=== PATIENT | female | born 1995 | race Caucasian/White ===

== ENCOUNTER 2018-03-25 09:37 | Emergency (ER) | payer OTHER ==
[2018-03-25] MEDS: predniSONE 20 MG TAB PO (10:33)
[2018-03-25] MEDS: DOXYCYCLINE 100 MG TAB PO (10:33)
[2018-03-25] MEDS: hydrOXYzine HCL 25 MG TAB PO (10:33)
== END 2018-03-25 10:38 | disposition home or self-care (01) ==
LOC: FTE 09:37
DX: L73.9 Follicular disorder, unspecified (principal)
CPT/HCPCS: 99284; J7512

== ENCOUNTER 2018-12-20 12:57 | Emergency (ER) | payer OTHER ==
[2018-12-20 14:06] LABS: URINE BLOOD (Dip) POC Trace-intact (NEGATIVE); URINE GLUCOSE (Dip) POC Negative (NEGATIVE); URINE KETONES (Dip) POC Negative (NEGATIVE); URINE LEUKOCYTE EST (Dip) POC Negative (NEGATIVE); URINE NITRITE (Dip) POC Negative (NEGATIVE); URINE TOTAL PROTEIN POC 1+ (NEGATIVE)
[2018-12-20 14:06] LABS: URINE PH (Dip) POC 5.5 (5.0-8.5)
== END 2018-12-20 15:00 | disposition home or self-care (01) ==
LOC: FTE 12:57
DX: J06.9 Acute upper respiratory infection, unspecified (principal)
CPT/HCPCS: 81003; 81025; 99282

== ENCOUNTER 2019-02-14 10:09 | Emergency (ER) | payer OTHER | END 2019-02-14 10:55 | disposition home or self-care (01) | LOC: FTE 10:09 | DX: J02.9 Acute pharyngitis, unspecified (principal) | CPT/HCPCS: 99283; Z7502 ==